=== PATIENT | male | born 1975 ===

== ENCOUNTER 2017-09-14 19:47 | Emergency (ER) | payer SELFPAY ==
[2017-09-14 20:06] VITALS: BP 142/89; PULSE 66; RESP 20; TEMP 98.9; O2SAT 99
[2017-09-14] MEDS ORDERED: Magnesium Citrate Oral SOL (300 ml) PO ONE (20:13)
[2017-09-14] MEDS ORDERED: Magnesium Citrate Oral SOL (300 ml) ONE (20:26)
--- NOTE | 2017-09-14 20:38 | C.PDOC ---
History Of Present Illness 42 year old male presents to ED for evaluation of constipation, states he has not had a bowel movement for 3 days. Notes he has been drinking prune juice and more water but still has not had a bowel movement. Patient states he developed abdominal pain today described as pressure. Patient has been passing flatus. Denies nausea, vomiting, or urinary symptoms. Time Seen by Provider: 09/14/17 20:09 Chief Complaint (Nursing): GI Problem History Per: Patient History/Exam Limitations: no limitations Onset/Duration Of Symptoms: Days (3) Current Symptoms Are (Timing): Still Present Location Of Pain/Discomfort: Diffuse Quality Of Discomfort: Pressure Associated Symptoms: Constipation. denies: Nausea, Vomiting, Loss Of Appetite, Back Pain, Chest Pain, Urinary Symptoms Exacerbating Factors: None Alleviating Factors: None Recent travel outside of the [place]: No Additional History Per: Patient Past Medical History Reviewed: Historical Data, Nursing Documentation, Vital Signs Vital Signs: Last Vital Signs Temp 98.9 F 09/14/17 20:04 Pulse 66 09/14/17 20:04 Resp 20 09/14/17 20:04 BP 142/89 09/14/17 20:04 Pulse Ox 99 09/14/17 20:50 Family History: States: Unknown Family Hx - Social History Hx Alcohol Use: No Hx Substance Use: No - Immunization History Hx Tetanus Toxoid Vaccination: No Hx Influenza Vaccination: No Hx Pneumococcal Vaccination: No Review Of Systems Except As Marked, All Systems Reviewed And Found Negative. Constitutional: Negative for: Fever, Chills Gastrointestinal: Positive for: Abdominal Pain, Constipation. Negative for: Nausea, Vomiting, Diarrhea Genitourinary: Negative for: Dysuria, Frequency, Hematuria Musculoskeletal: Negative for: Back Pain Physical Exam - Physical Exam Appears: Non-toxic, No Acute Distress Skin: Normal Color, Warm, Dry Head: Atraumatic, Normacephalic Eye(s): bilateral: Normal Inspection Oral Mucosa: Moist Neck: Supple Cardiovascular: Rhythm Regular, No Murmur Respiratory: Normal Breath Sounds, No Rales, No Rhonchi, No Wheezing Gastrointestinal/Abdominal: Soft, No Tenderness, No Guarding, No Rebound Extremity: Normal ROM, No Deformity Neurological/Psych: Oriented x3, Normal Speech ED Course And Treatment O2 Sat by Pulse Oximetry: 99 (RA) Pulse Ox Interpretation: Normal Medical Decision Making Medical Decision Making: Plan: Abdomen x-ray Magnesium Citrate Reassess, dispo: Xray shows moderate fecal retention. Patient remains afebrile and in no distress. Abdomen soft with no signs of acute abdomen. Patient advised to increase water and fiber intake and Rx given for laxative. Disposition Counseled Patient/Family Regarding: Diagnosis, Need For Followup, Rx Given - Disposition Referrals: Non [facility] Provider, [Primary Care Provider] - Disposition: HOME/ ROUTINE Disposition Time: 20:45 Condition: STABLE Additional Instructions: Kimberley ms agua y coma ms fibra Boone unos obrien, evite agrupar alimentos ngozi arroz, j carlos y ap Prescriptions: Polyethylene Glycol 3350 [Miralax] 17 gm PO ONCE PRN #1 packet PRN Reason: Constipation Instructions: Constipation, Adult (DC) Forms: [employer] (Kazakh) Print Language: IRISH - POA Present On Arrival: None - Clinical Impression Clinical Impression: Constipation - PA / THREAD CLIPPER / Resident Statement MD/DO has reviewed & agrees with the documentation as recorded. - Scribe Statement The provider has reviewed the documentation as recorded by the Scribladonna Arango All medical record entries made by the Marilouibladonna were at my direction and personally dictated by me. I have reviewed the chart and agree that the record accurately reflects my personal performance of the history, physical exam, medical decision making, and the department course for this patient. I have also personally directed, reviewed, and agree with the discharge instructions and disposition.
--- NOTE | 2017-09-15 08:01 | RAD ---
HISTORY: abd pain constipation COMPARISON: None available. FINDINGS: BOWEL: Nonobstructive bowel gas pattern. Moderate constipation. No definite free air. BONES: No acute osseous abnormality is detected. OTHER FINDINGS: None. IMPRESSION: Moderate constipation.
== END 2017-09-14 20:52 | disposition home or self-care (01) ==
LOC: SUPCPDRO 19:47 → C.ER 19:47
DX: K59.00 Constipation, unspecified (principal)